=== PATIENT | female | born 1980 | race Caucasian/White ===

== ENCOUNTER 2020-02-29 16:29 | Emergency (ER) | payer OTHER ==
[~2020-02-29] VITALS: Ht 160 cm; Wt 78.0 kg
[2020-02-29] MEDS ORDERED: PRENATAL + DHA1 EAC1 (16:40)
== END 2020-02-29 17:10 | disposition home or self-care (01) ==
LOC: ER 16:29
DX: O26.892 Other specified pregnancy related conditions, second trimester (principal); M54.42 Lumbago with sciatica, left side

== ENCOUNTER 2020-05-21 09:07 | Outpatient (CLI) | payer OTHER ==
[~2020-05-21 09:07] MED LIST: PRENATAL + DHA1 EAC1
[2020-05-21] MEDS ORDERED: PRENATAL TABLE1 EAC3 PO (10:02)
[2020-05-21] MEDS ORDERED: FOLIC ACID20 MG PO (10:03)
[2020-05-21] MEDS ORDERED: ADULT ASPIRIN81 MG PO (10:03)
[2020-05-21] MEDS ORDERED: IRON325 MG PO (10:03)
== END 2020-05-21 14:25 | disposition home or self-care (01) ==
LOC: OBS/DEL 09:07
PROVIDERS: ATTEND Obstetrics & Gynecology
DX: O36.8130 Decreased fetal movements, third trimester, not applicable or unspecified (principal); O99.891 Other specified diseases and conditions complicating pregnancy; N13.39 Other hydronephrosis; Z3A.30 30 weeks gestation of pregnancy; O26.843 Uterine size-date discrepancy, third trimester; O09.513 Supervision of elderly primigravida, third trimester